=== PATIENT | male | born 1980 | race Two or more races ===

== ENCOUNTER 2017-11-04 02:37 | Emergency (ER) | payer SELFPAY ==
[~2017-11-04] VITALS: Ht 180.3 cm; Wt 108.9 kg
[2017-11-04 03:36] LABS: BASOPHILS # (AUTO) 0.1 K/uL (0.0-8.0); BASOPHILS % (AUTO) 1.5 % (0.0-2.0); EOSINOPHILS # (AUTO) 0.6 K/uL (0.0-0.7); EOSINOPHILS % (AUTO) 6.1 % (0.0-7.0); HEMATOCRIT 42.3 % (36.7-47.1); HEMOGLOBIN 14.5 g/dL (12.5-16.3); LYMPHOCYTES # (AUTO) 3.4 K/uL (20.0-40.0); LYMPHOCYTES % (AUTO) 35.8 % (20.5-51.5); MEAN CORPUSCULAR HEMOGLOBIN 28.5 uug (23.8-33.4); MEAN CORPUSCULAR HGB CONC 34 g/dL (32.5-36.3); MEAN CORPUSCULAR VOLUME 83.1 fL (73.0-96.2); MONOCYTES # (AUTO) 0.8 K/uL (2.0-10.0); MONOCYTES % (AUTO) 8.2 % (0.0-11.0); NEUTROPHILS # (AUTO) 4.6 K/uL (1.8-8.9); NEUTROPHILS % (AUTO) 48.4 % (38.5-71.5); PLATELET COUNT (AUTO) 260 K/uL (152-348); RED BLOOD CELL COUNT(AUTO) 5.09 MIL/uL (4.06-5.63); WHITE BLOOD COUNT (AUTO) 9.4 K/uL (3.6-10.2)
[2017-11-04 03:46] LABS: BILIRUBIN,DIRECT 0.1 mg/dL (0.0-0.2); BILIRUBIN,TOTAL 0.4 mg/dL (0.2-1.0); CREATININE 1.2 mg/dL (0.6-1.3); POTASSIUM 3.9 mmol/L (3.5-5.1); TOTAL PROTEIN, SERUM 7.2 g/dL (6.4-8.2)
--- NOTE | 2017-11-04 03:57 | NUR ---
BP 185/120, DR ZHU NOTIFIED
[2017-11-04] MEDS ORDERED: CLONIDINE HCL 0.1 MG TABLET PO ONE ×2 (04:00→05:00)
[2017-11-04] MEDS ORDERED: CLONIDINE HCL 0.1 MG TABLET ONE ×2 (04:20→05:23)
--- NOTE | 2017-11-04 05:00 | NUR ---
Dr. Weathers notified of pt's blood pressure and into speak with pt.
--- NOTE | 2017-11-04 05:13 | NUR ---
MEDICATED FOR CONTINUED ELEVATED BP. PER DR ZHU, PT STABLE FOR DISCHARGE AT THIS TIME AND NOT REQUIRED TO WAIT FOR EFFECT OF MEDICATION
[2017-11-04 05:17] VITALS: BP 168/115
== END 2017-11-04 05:18 | disposition home or self-care (01) ==
LOC: ER 02:39
DX: R04.0 Epistaxis (principal); I10 Essential (primary) hypertension; F17.200 Nicotine dependence, unspecified, uncomplicated
CPT/HCPCS: 36415; 80048; 80076; 84484; 85025; 85730; 93005; 99285; A4663; 70030-TC